=== PATIENT | female | born 2000 | race Caucasian/White ===

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

== ENCOUNTER → 2023-06-22 09:35 | Day surgery (SDC) | payer MEDICAID, SELFPAY ==
--- NOTE | 2023-06-22 09:28 | ANES.PREANE2 ---
Pre-Anesthetic Assessment Height/Weight: Height 1.5 m Operation Date: 06/28/23 07:00 Proposed Procedures p Section Repeat 52508,O34.219 33360,Z30.2(Not Applicable) - Ellis Mixon MD Familial anesthetic complications: Previous epidural did not work, had to be replaced, still didn't work. Had several attempts at placement When she then had to go to the epidural was pulled and spinal was attempted but it took over 30 attempts to get CSF (spinal worked ok) - patient has scoliosis She was told that they ended up using a [id number]-[id number] needle to obtain success on the epidural. Unclear was needle was used in spinal. Was Beta Jan taken within 24 hours: N/A Was Clonidine taken within 24 hours: N/A Social No alcohol and No tobacco Exam alert, oriented x 3, clear to auscultation bilaterally and regular rate & rhythm Airway Mallampati: Class II Dentition: chipped Pulmonary Asthma (rare inhaler use) Metabolic Morbid Obesity Anesthetic Plan ASA status: 2 Anesthesia: Regional (specify below) Risk of > 500 ml blood loss (7ml/kg in children): Yes, adequate IV access and fluids planned Medications/Allergies Home Medications Medication Instructions Recorded Confirmed Last Taken Type norgestimate 0.25 mg-ethinyl 1 tab PO DAILY #84 tabs 08/17/19 10/03/19 10/02/19 Rx estradiol 35 mcg tablet albuterol sulfate 90 mcg/actuation 1 inh inhalation QID PRN Shortness 10/03/19 10/03/19 Unknown History aerosol inhaler Of Breath cyclobenzaprine 10 mg tablet 10 mg PO TID PRN muscle spasm #20 10/03/19 Unknown Rx tabs hydrocodone 5 mg-acetaminophen 325 1 tab PO Q6H PRN pain #10 tabs 10/03/19 Unknown Rx mg tablet Allergies Allergy/AdvReac Type Severity Reaction Status Date / Time azithromycin Allergy Intermediate Difficulty Verified 08/17/19 15:29 [From Zithromax Z-Farooq] breathing, rapid pulse, rash cefdinir [From Omnicef] Allergy Unknown Verified 10/03/19 11:27 [facility] Anesthesia Medical History (Updated 10/11/19 @ 00:00 by WENDY Torres) Tinea versicolor Surgical History No pertinent past surgical history Family History Grandmother Heart disease Maternal grandmother Diabetes Maternal great grandmother Family/Other Heart disease Paternal great uncle Diabetes Maternal uncle Paternal great uncle Hypertension Maternal uncle Maternal aunt x2 Mother Heart disease Grandfather Heart disease Maternal grandfather Hypertension Maternal grandfather Denies family history of Colon cancer Ovarian cancer Hyperlipidemia Breast cancer Family history of thyroid problem Uterine cancer Stroke Social History Smoking and tobacco/nicotine status: never used tobacco/nicotine Alcohol intake: never Substance/Drug Use: never Data Anesthesia Cardiac Studies: No Data to Display
[2023-06-28] VITALS (17 sets, daily range): BP systolic 63–153; BP diastolic 34–99; PULSE 90–230; RESP 15; TEMP 36.6–36.9; O2SAT 96–100
--- NOTE | 2023-06-28 07:05 | P.ANESASSM_ITS ---
Pre-Anesthetic Assessment Height/Weight: Height 1.5 m Preop Diagnosis: repeat csection Operation Date: 06/28/23 07:00 Proposed Procedures p Section Repeat 33884,O34.219 35915,Z30.2(Not Applicable) - Ellis Mixon MD Was Beta Jan taken within 24 hours: N/A Was Clonidine taken within 24 hours: N/A Last Intake: 23:00 Social No tobacco Exam alert and oriented x 3 Airway Submandibular: within normal limits Cervical ROM: within normal limits Mallampati: Class II Dentition: full History/ROS No significant history except as noted Pulmonary None reported CV/HEM None reported None reported Hepatic None reported GI Gastroesophageal Reflux Disease Metabolic None reported Musc/skel Scoliosis Neuropsych None reported Anesthetic Plan ASA status: 2 Anesthesia: Regional (specify below) Other: SPINAL Risk of > 500 ml blood loss (7ml/kg in children): Yes, adequate IV access and fluids planned Medications/Allergies Home Medications Medication Instructions Recorded Confirmed Last Taken Type 1 tab PO DAILY 06/28/23 06/28/23 06/26/23 12:00 History [facility] Anesthesia Medical History (Updated 10/11/19 @ 00:00 by WENDY Torres) Tinea versicolor Surgical History No pertinent past surgical history Family History Grandmother Heart disease Maternal grandmother Diabetes Maternal great grandmother Family/Other Heart disease Paternal great uncle Diabetes Maternal uncle Paternal great uncle Hypertension Maternal uncle Maternal aunt x2 Mother Heart disease Grandfather Heart disease Maternal grandfather Hypertension Maternal grandfather Denies family history of Colon cancer Ovarian cancer Hyperlipidemia Breast cancer Family history of thyroid problem Uterine cancer Stroke Social History Smoking and tobacco/nicotine status: never used tobacco/nicotine Alcohol intake: never Substance/Drug Use: never Data Anesthesia Cardiac Studies: No Data to Display
== END ==
PROVIDERS: PCP Nurse Practitioner; Visit Provider Family Medicine
PROC: (CPT 59514; principal; 2023-06-28 07:00)
DX: Z53.9 Procedure and treatment not carried out, unspecified reason (principal)
CPT/HCPCS: 51702; 59409; 88302

== ENCOUNTER 2023-06-28 05:29 | Inpatient (IN) | payer MEDICAID, SELFPAY ==
[2023-06-28] VITALS (115 sets, daily range): BP systolic 106–141; BP diastolic 55–95; PULSE 33–153; RESP 16–17; TEMP 36.7–37.2; O2SAT 93–100; BMI 42.8
[2023-06-28 06:17] LABS: Basophils # 0.1 10^3/uL (0.0-0.1); Basophils % 0.8 %; Eosinophils # 0.1 10^3/uL (0.0-0.8); Eosinophils % 0.6 %; Hematocrit 32.6 % (36-47); Lymphocytes # 0.9 10^3/uL (0.8-4.8); Lymphocytes % 10.6 %; Mean Corpuscular Hemoglobin 24.3 pg (27-33); Mean Corpuscular Volume 78.4 fl (85-98); Mean Platelet Volume 10.8 fL (7.4-10.4); Neutrophils # 6.37 10^3/uL (1.8-7.7); Neutrophils % 73.6 %; Nucleated Red Blood Cells % 0 %; Platelet Count 377 10^3/cmm (157-399); Red Blood Count 4.16 10^6/uL (3.85-5.65); Red Cell Distribution Width 14.5 % (12.1-15.1); White Blood Count 8.66 10^3/uL (3.29-11.43)
[2023-06-28] MEDS: lactated ringers 1,000 ML 999 ML IV ×3 (06:17→10:18)
--- NOTE | 2023-06-28 06:32 | PM.OBGYHP ---
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 Patient denies any concerns today. Patient has had an unremarkable . labs were unremarkable. Patient is GBS positive. 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: Medical History (Updated 10/11/19 @ 00:00 by WENDY Torres) Tinea versicolor Surgical History No pertinent past surgical history Family History Grandmother Heart disease Maternal grandmother Diabetes Maternal great grandmother Family/Other Heart disease Paternal great uncle Diabetes Maternal uncle Paternal great uncle Hypertension Maternal uncle Maternal aunt x2 Mother Heart disease Grandfather Heart disease Maternal grandfather Hypertension Maternal grandfather Denies family history of Colon cancer Ovarian cancer Hyperlipidemia Breast cancer Family history of thyroid problem Uterine cancer Stroke Social History Smoking and tobacco/nicotine status: never used tobacco/nicotine Alcohol intake: never Substance/Drug Use: never History History History 2 Term 1 0 Miscarriages/Ectopic 0 Living Children 1 Vitals/I&O/Wt Last Vital Signs Pulse 106 H 06/28/23 06:23 BP 129/73 06/28/23 06:23 O2 Del Method Room Air 06/28/23 06:23 Weight last 48 hrs Weight 96.162 kg Physical Exam Const: COMMON NORMALS: no acute distress, healthy appearing and alert HENMT: COMMON NORMALS: normocephalic and moist oral mucous membranes Resp: COMMON NORMALS: normal respiratory effort and clear to auscultation bilaterally Cardio: COMMON NORMALS: no JVD, regular rate and regular rhythm GI: OTHER: Gravid uterus Back/Pelvis: COMMON NORMALS: no CVA tenderness Extremity: COMMON NORMALS: normal to inspection and no clubbing, cyanosis or edema Neuro: COMMON NORMALS: moves all extremities, no focal motor deficits and no sensory deficits noted Psych: COMMON NORMALS: mental status grossly normal, cooperative and normal affect Skin: COMMON NORMALS: no rashes or lesions noted Data 06/28/23 05:59 Results Labs OB ([facility]): Blood Type Pending 06/28/23 Antibody Screen Pending 06/28/23 Hct 32.6 % (36-47) L 06/28/23 Hgb 10.10 g/dL (11.27-16.99) L 06/28/23 Rho(D) Type Pending 06/28/23 Plt Count 377 10^3/cmm (157-399) 06/28/23 Attestations Medical Necessity Statement*: Patient presents and was admitted for repeat lower transverse and care. Anticipate 2 midnight stay Coding Level of Care Code Acute Code for Chg Fwd
[2023-06-28] MEDS: tranexamic acid 1,000 MG/100 ML PREMIX 600 MG IV (08:09)
--- NOTE | 2023-06-28 09:00 | P.OP_ITS ---
Operative Report Date of procedure: June 28, 2023 Pre-op diagnosis: Term intrauterine , desires permanent sterilization Post-op diagnosis: Same, viable male Procedure done: Repeat low-transverse with tubal ligation Specimens removed/disposition: Bilateral fallopian tubes Surgeon: Ellis Mixon MD Estimated blood loss (mL): 700 IV fluids: 1200 Urine output: 200 Complications: None Condition: stable Procedure: Patient was taken to the operating room where epidural anesthesia was found to be adequate. She was prepped and draped in the normal sterile fashion in a dorsal supine position with a leftward tilt. Skin incision was made with scalpel and carried out to the underlying layer of fascia which was incised in the midline. Fascial incision was then extended laterally with Cobb scissors bilaterally. The superior aspect of the fascial incision was grasped with Matias clamps elevated and dissected off the rectus muscles with Cobb's. The inferior aspect of the fascial incision was grasped with Samantha's and in likewise manner was elevated and dissected off with Cobb's. Peritoneum was then entered digitally and extended with good visualization of the bladder. Bladder blade was then inserted. Uterine incision was then created in a transverse fashion in the lower uterine segment with scalpel and extended digitally. Amniotic sac was a round with Allis clamp. Clear fluid noted. Infant's head was delivered atraumatically nose and mouth suctioned with bulb, cord clamped and cut and handed off to waiting nursing staff. The placenta was then expressed and uterus exteriorized from the abdomen. And cleared of all clots and debris. Uterine incision was then repaired in a running locked fashion with 0 Vicryl. A second suture of 2-0 Vicryl was then used to imbricate the incision. Left fallopian tube was grasped with an Allis clamp. The left fallopian tube was excised using a Voyant clamp. The right fallopian tube was then grasped and excised in a similar fashion. Uterus was then returned to the abdomen, gutters were cleared of all clots and debris and wound was evaluated. Small bowel bleeding was still noted so Aurea powder was placed. Peritoneum was then closed in a with simple sutures with 2-0 Vicryl. Fascia was then closed with 0 Vicryl in a running fashion. Subcutaneous tissue was closed with 2-0 Vicryl and skin was closed with 4-0 Monocryl on a Hermann needle. The incision was reinforced with Steri- Strips and pressure bandage was over the wound. Sponge, laps, and needle count was correct x2. 2 g Ancef was given prior to the procedure. Patient was taken recovery in stable condition.
[2023-06-28 09:41] LABS: Basophils # 0.1 10^3/uL (0.0-0.1); Basophils % 0.6 %; Eosinophils % 0.1 %; Hematocrit 26.4 % (36-47); Lymphocytes # 0.8 10^3/uL (0.8-4.8); Lymphocytes % 9.5 %; Mean Corpuscular HGB Conc 30.7 g/dL (30-55); Mean Corpuscular Hemoglobin 24.4 pg (27-33); Mean Corpuscular Volume 79.5 fl (85-98); Mean Platelet Volume 10.5 fL (7.4-10.4); Monocytes # 0.5 10^3/uL (0.2-0.9); Monocytes % 5.9 %; Neutrophils # 6.67 10^3/uL (1.8-7.7); Nucleated Red Blood Cells % 0 %; Platelet Count 335 10^3/cmm (157-399); Red Blood Count 3.32 10^6/uL (3.85-5.65); Red Cell Distribution Width 14.6 % (12.1-15.1); White Blood Count 8.24 10^3/uL (3.29-11.43)
[2023-06-28] MEDS: miSOPROStol 200 mcg Tablet 800 MCG PR (09:41)
[2023-06-28 14:42] LABS: Basophils # 0.1 10^3/uL (0.0-0.1); Basophils % 0.3 %; Hematocrit 24.9 % (36-47); Lymphocytes # 0.8 10^3/uL (0.8-4.8); Lymphocytes % 4.2 %; Mean Corpuscular HGB Conc 30.9 g/dL (30-55); Mean Corpuscular Hemoglobin 24.7 pg (27-33); Mean Corpuscular Volume 79.8 fl (85-98); Mean Platelet Volume 10.7 fL (7.4-10.4); Monocytes # 1.1 10^3/uL (0.2-0.9); Neutrophils # 15.96 10^3/uL (1.8-7.7); Neutrophils % 88.1 %; Nucleated Red Blood Cells % 0 %; Platelet Count 370 10^3/cmm (157-399); Red Blood Count 3.12 10^6/uL (3.85-5.65); Red Cell Distribution Width 14.6 % (12.1-15.1); White Blood Count 18.13 10^3/uL (3.29-11.43)
[2023-06-28] MEDS: ketorolac 30 mg/mL INJ IVP ×2 (14:42→20:53)
[2023-06-28] MEDS: docusate sodium 100 mg Capsule PO (17:55)
[2023-06-28] MEDS: ferrous sulfate EC 325 mg Tablet PO (17:55)
[2023-06-28] MEDS: simethicone 80 mg Chew PO (17:55)
[2023-06-28 21:08] LABS: Hematocrit 22.8 % (36-47); Mean Corpuscular HGB Conc 30.3 g/dL (30-55); Mean Corpuscular Hemoglobin 24.6 pg (27-33); Mean Corpuscular Volume 81.1 fl (85-98); Mean Platelet Volume 10.6 fL (7.4-10.4); Platelet Count 349 10^3/cmm (157-399); Red Blood Count 2.81 10^6/uL (3.85-5.65); Red Cell Distribution Width 14.6 % (12.1-15.1); White Blood Count 14.07 10^3/uL (3.29-11.43)
[2023-06-28] MEDS: HYDROcodone-acetaminophen 5-325 mg Tablet PO (23:46)
[2023-06-29] VITALS (12 sets, daily range): BP systolic 110–121; BP diastolic 55–70; PULSE 104–130; RESP 16–17; TEMP 36.8–37.6; O2SAT 96–99
[2023-06-29] MEDS: ketorolac 30 mg/mL INJ IVP ×2 (02:58→07:44)
[2023-06-29 06:20] LABS: Mean Corpuscular HGB Conc 30.9 g/dL (30-55); Mean Corpuscular Hemoglobin 24.9 pg (27-33); Mean Corpuscular Volume 80.5 fl (85-98); Mean Platelet Volume 10.7 fL (7.4-10.4); Platelet Count 355 10^3/cmm (157-399); Red Blood Count 2.41 10^6/uL (3.85-5.65); Red Cell Distribution Width 14.6 % (12.1-15.1); White Blood Count 11.98 10^3/uL (3.29-11.43)
[2023-06-29 06:28] LABS: Hematocrit 19.4 % (36-47)
--- NOTE | 2023-06-29 06:53 | P.PN_ITS ---
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 The patient had diaphoresis and increased tachycardia immediately after surgery. Those symptoms did improve. Initial hemoglobin was 8 immediately after surgery. This dropped to 7.7 4 hours later. 12 hours it was 6.9 and approximately 24 hours it was 6. Patient is a symptomatic. Patient is able to stand without dizziness. Lochia has been appropriate. Patient has been having some abdominal tenderness but this seems to be appropriate with fundal height. Nursing has expressed some increase in abdominal distention. Patient has had good urine output. Patient has urinated after catheter removal. Labor: Monitor Mode: External Contraction Pattern: Irregular Post /CS: Patient comments OB post-: pain well controlled and incisional pain baby status: doing well [place] feeding status: e xclusively bottle feeding Vitals/I&O/Wt Last Vital Signs Temp 98.1 F 06/28/23 22:17 Pulse 119 H 06/29/23 05:56 Resp 17 06/28/23 22:17 BP 119/58 06/29/23 05:55 Pulse Ox 99 06/29/23 05:56 O2 Del Method Room Air 06/28/23 22:17 06/28/23 06/28/23 06/29/23 14:59 22:59 06:59 Intake Total 1032.4 / 1032.4 1000 / 2032.4 Output Total 800 / 800 850 / 1650 Balance 1032.4 / 1032.4 200 / 1232.4 -850 / 382.4 Weight last 48 hrs Weight 96.162 kg Physical Exam 2 Const: COMMON NORMALS: no acute distress, healthy appearing and alert HENMT: COMMON NORMALS: normocephalic and moist oral mucous membranes HEAD & SCALP: normocephalic Neck/C-Spine: COMMON NORMALS: no JVD Resp: COMMON NORMALS: normal respiratory effort and clear to auscultation bilaterally AUSCULTATION: clear to auscultation bilaterally Cardio: COMMON NORMALS: no JVD, regular rate and regular rhythm RATE: r egular rate RHYTHM: regular rhythm GI: COMMON NORMALS: Normal to inspection, nondistended, normoactive bowel sounds present and Soft to palpation PALPATION: Yes Soft to palpation O THER: Tender over uterus. : COMMON NORMALS: Yes no CVA tenderness BLADDER/KIDNEY EXAM: Yes no CVA tenderness Back/Pelvis: COMMON NORMALS: no CVA tenderness Extremity: COMMON NORMALS: normal to inspection and no clubbing, cyanosis or edema Neuro: COMMON NORMALS: moves all extremities, no focal motor deficits and no sensory deficits noted SENSORIUM/ORIENTATION: Yes alert Psych: COMMON NORMALS: mental status grossly normal, cooperative and normal affect Skin: COMMON NORMALS: no rashes or lesions noted GENERAL SKIN EXAM: no rashes or lesions noted Urinary Catheter Management: Joya Latex: Cath Placed During This Visit: yes, but has since been removed by the nurse Reason for Continuing Indwelling Catheter: Decision to DC Catheter Urinary Catheter Date of Insertion: 06/28/23 Urinary Catheter Time of Insertion: 07:15 Date Urinary Catheter Removed: 06/29/23 Time Urinary Catheter Discontinued: 02:59 Data 06/29/23 06:15 A&P Assessment and plan (1) delivery, delivered, current hospitalization: Continue with routine care. (2) Acute blood loss anemia: Continue to trend hemoglobin. Patient is currently asymptomatic so we will avoid blood transfusion at this time, however if this changes then we will proceed. Patient has 2 units typed and crossed. Attestations 2 Medical Necessity Statement*: Patient admitted for repeat lower transverse . Anticipate at least 2 midnight stay Coding Level of Care Code Acute Code for Chg Fwd Diagnoses delivery, delivered, current hospitalization O82 Acute blood loss anemia D62
[2023-06-29] MEDS: prenatal vitamin Capsule 1 CAP PO (07:45)
[2023-06-29] MEDS: ferrous sulfate EC 325 mg Tablet PO ×2 (07:45→20:06)
[2023-06-29] MEDS: simethicone 80 mg Chew PO ×2 (07:45→14:47)
--- NOTE | 2023-06-29 07:52 | PC.NURSE ---
This nurse called Dr. Mixon at approximately 2100 on 06/28/2023 to report the results of the 12 hour hemagram, patient's pain level and the assessment of the rigidity of the patient's abdomen. Dr. Mixon verbalize understanding and stated that he would like a repeat hemagram in the AM and frequent vital signs.
[2023-06-29 11:47] LABS: Hematocrit 19.3 % (36-47)
--- NOTE | 2023-06-29 11:53 | PC.NURSE ---
Physician notified at this time of critical hgb result of 5.9, pt asymptomatic, VS within normal range with exception of heart rate, has ranged from 104-130. Orders received to recheck hgb in 6 hr at 1700.
[2023-06-29 18:07] LABS: Hematocrit 18.7 % (36-47)
--- NOTE | 2023-06-29 18:21 | PC.NURSE ---
Physician notified of critical lab result of hgb of 5.6, pt experiencing chills, increase in temp to 99.6, face warm to touch, abdomen appears slightly distended upon assessment at this time. Orders received for IV gentamycin and ampicillin, redraw hgb in another 6 hours at 2300.
[2023-06-29] MEDS: ampicillin 1,000 MG in sodium chloride 0.9% (plus) 50 ML 100 MG IV (20:01)
[2023-06-29] MEDS: docusate sodium 100 mg Capsule PO (20:06)
[2023-06-29] MEDS: ibuprofen 800 mg tablet PO (21:13)
[2023-06-29] MEDS: gentamicin inj 480 MG in sodium chloride 0.9% (100 ml) 100 ML 112 MG IV (21:18)
[2023-06-29 23:13] LABS: Mean Corpuscular HGB Conc 30.9 g/dL (30-55); Mean Corpuscular Hemoglobin 24.3 pg (27-33); Mean Corpuscular Volume 78.8 fl (85-98); Mean Platelet Volume 10.7 fL (7.4-10.4); Platelet Count 361 10^3/cmm (157-399); Red Blood Count 2.26 10^6/uL (3.85-5.65); Red Cell Distribution Width 14.7 % (12.1-15.1); White Blood Count 10.13 10^3/uL (3.29-11.43)
[2023-06-29 23:23] LABS: Hematocrit 17.8 % (36-47)
[2023-06-30 04:31] VITALS: BP 99/54; PULSE 99; O2SAT 99
[2023-06-30 04:34] VITALS: TEMP 36.4
[2023-06-30] MEDS: HYDROcodone-acetaminophen 5-325 mg Tablet PO (04:36)
[2023-06-30 04:41] LABS: Mean Corpuscular HGB Conc 30.4 g/dL (30-55); Mean Corpuscular Hemoglobin 24.3 pg (27-33); Mean Corpuscular Volume 79.9 fl (85-98); Mean Platelet Volume 9.7 fL (7.4-10.4); Platelet Count 379 10^3/cmm (157-399); Red Blood Count 2.59 10^6/uL (3.85-5.65); Red Cell Distribution Width 14.7 % (12.1-15.1); White Blood Count 10.98 10^3/uL (3.29-11.43)
[2023-06-30 04:46] LABS: Hematocrit 20.7 % (36-47)
--- NOTE | 2023-06-30 07:31 | P.DS_ITS ---
Discharge Providers ASSESSMENT TECHNICIAN Date of Admission: 06/28/23 05:29 Date of Discharge: 06/30/23 Attending Provider at Admission: Ellis Mixon MD Attending Provider at Discharge: Ellis Mixon MD Primary Care Provider: Hipolito Sandoval Diagnoses at Discharge Discharge Diagnosis (1) delivery, delivered, current hospitalization: Status: Acute (2) Acute blood loss anemia: Status: Acute (3) Endometritis: Status: Acute Reason for Visit Reason for Visit: c section Brief History: Repeat low-transverse with tubal ligation Hospital Course Hospital Course This is a 23-year-old that presented at 39 weeks for a repeat low- transverse with tubal ligation. The patient underwent procedure without significant complication. The patient did have diaphoresis, tachycardia, and hypotension following the procedure. Patient received fluids and her symptoms did improve. Patient's uterus was boggy as well and the patient received multiple doses of medications including Methergine and Cytotec. Once patient was stable she was moved into a room and did not have any further significant issues. There was blood loss during the procedure and concerns for potential continued bleeding so hemoglobin was trended throughout her stay. The patient did have a downward trending hemoglobin for the first 2 days. On day 2 the patient did have increasing abdominal tenderness and elevated temperature. The patient was diagnosed with endometritis and started on gentamicin and ampicillin. This was likely from GBS since she was GBS positive. The patient did have significant improvement after the administration of antibiotics and her hemoglobin started trending upwards. The patient did not have any significant signs or symptoms of anemia. The patient was able to ambulate and do routine activity without shortness of breath or dizziness. Patient was not administered blood because of this. On the day of discharge patient was stable vital signs were normal. Information Peripartum Data: Infant Delivery Method: Physical Exam Const: COMMON NORMALS: no acute distress, healthy appearing and alert HENMT: COMMON NORMALS: normocephalic and moist oral mucous membranes HEAD & SCALP: normocephalic Neck/C-Spine: COMMON NORMALS: no JVD Resp: COMMON NORMALS: normal respiratory effort and clear to auscultation bilaterally AUSCULTATION: clear to auscultation bilaterally Cardio: COMMON NORMALS: no JVD, regular rate and regular rhythm RATE: regular rate RHYTHM: regular rhythm GI: COMMON NORMALS: Normal to inspection, nondistended, normoactive bowel sounds present and Soft to palpation PALPATION: Yes Soft to palpation OTHER: Interval improvement in tenderness. Incision is clean dry and intact. : COMMON NORMALS: Yes no CVA tenderness BLADDER/KIDNEY EXAM: Yes no CVA tenderness Back/Pelvis: COMMON NORMALS: no CVA tenderness Extremity: COMMON NORMALS: normal to inspection and no clubbing, cyanosis or edema Neuro: COMMON NORMALS: moves all extremities, no focal motor deficits and no sensory deficits noted SENSORIUM/ORIENTATION: Yes alert Psych: COMMON NORMALS: mental status grossly normal, cooperative and normal affect Skin: COMMON NORMALS: no rashes or lesions noted GENERAL SKIN EXAM: no rashes or lesions noted Urinary Catheter Management: Joya Latex: Cath Placed During This Visit: yes, but has since been removed by the nurse Reason for Continuing Indwelling Catheter: Decision to DC Catheter Urinary Catheter Date of Insertion: 06/28/23 Urinary Catheter Time of Insertion: 07:15 Date Urinary Catheter Removed: 06/29/23 Time Urinary Catheter Discontinued: 02:59 History History History 2 Term 2 0 Miscarriages/Ectopic 0 Living Children 2 Discharge Data Studies Completed and Pending Pending at discharge Category Date Time Status Leukocyte Reduced RBC Routine Lab 06/28/23 05:59 Results Type and Screen Routine Lab 06/28/23 05:59 Results Laboratory Results WBC 10.98 10^3/uL (3.29-11.43) 06/30/23 04:32 RBC 2.59 10^6/uL (3.85-5.65) L 06/30/23 04:32 Hgb 6.30 g/dL (11.27-16.99) L* 06/30/23 04:32 Hct 20.7 % (36-47) L* 06/30/23 04:32 MCV 79.9 fl (85-98) L 06/30/23 04:32 MCH 24.3 pg (27-33) L 06/30/23 04:32 MCHC 30.4 g/dL (30-55) 06/30/23 04:32 RDW 14.7 % (12.1-15.1) 06/30/23 04:32 Plt Count 379 10^3/cmm (157-399) 06/30/23 04:32 MPV 9.7 fL (7.4-10.4) 06/30/23 04:32 Neut % (Auto) 88.1 % 06/28/23 14:33 Lymph % (Auto) 4.2 % 06/28/23 14:33 Leslie % (Auto) 6.0 % 06/28/23 14:33 Eos % (Auto) 0.0 % 06/28/23 14:33 Baso % (Auto) 0.3 % 06/28/23 14:33 Neut # (Auto) 15.96 10^3/uL (1.8-7.7) H 06/28/23 14:33 Lymph # (Auto) 0.8 10^3/uL (0.8-4.8) 06/28/23 14:33 Leslie # (Auto) 1.1 10^3/uL (0.2-0.9) H 06/28/23 14:33 Eos # (Auto) 0.0 10^3/uL (0.0-0.8) 06/28/23 14:33 Baso # (Auto) 0.1 10^3/uL (0.0-0.1) 06/28/23 14:33 Nucleated RBC % (auto) 0 % 06/28/23 14:33 Nucleated RBCs # 0.0 /100WBC 06/28/23 14:33 Blood Type O Positive 06/28/23 05:59 Rho(D) Type Rh positive 06/28/23 05:59 Antibody Screen Negative 06/28/23 05:59 Crossmatch See Detail 06/28/23 05:59 Vitals Last Vital Signs Temp 97.6 F 06/30/23 04:34 Pulse 99 06/30/23 04:31 Resp 16 06/29/23 20:00 BP 99/54 06/30/23 04:31 Pulse Ox 99 06/30/23 04:31 O2 Del Method Room Air 06/29/23 20:00 Results Labs OB ([facility]): Blood Type O Positive 06/28/23 Antibody Screen Negative 06/28/23 Hct 20.7 % (36-47) L* 06/30/23 Hgb 6.30 g/dL (11.27-16.99) L* 06/30/23 Rho(D) Type Rh positive 06/28/23 Plt Count 379 10^3/cmm (157-399) 06/30/23 Discharge Plan Discharge Patient Disposition: Home Condition: Stable Prescriptions: New hydrocodone-acetaminophen 5-325 mg Tablet 1 - 2 tab PO Q4H PRN (Reason: Moderate To Severe Pain) Qty: 20 0RF ferrous sulfate 325 mg (65 mg iron) Tablet,Delayed Release (Dr/Ec) 325 mg PO BIDWM Qty: 180 0RF Continued 1 tab PO DAILY Discharge Orders: Discharge Order (Routine); Ordered 06/30/23 Ordered By: Ellis Mixon Referrals: Ellis Mixon MD [Physician] - 1 week Discharge Diet: Usual diet Discharge Activity: Limit activity as instructed Patient Instructions: Opioid Safety Discharge Attestations ASSESSMENT TECHNICIAN Time Spent in Discharge Care*: less than 30 min Coding Level of Care Code Acute Code for Chg Fwd Diagnoses delivery, delivered, current hospitalization O82 Acute blood loss anemia D62 Endometritis N71.9
[2023-06-30] MEDS: ampicillin 1,000 MG in sodium chloride 0.9% (plus) 50 ML 100 MG IV (08:13)
[2023-06-30] MEDS: prenatal vitamin Capsule 1 CAP PO (08:14)
[2023-06-30] MEDS: docusate sodium 100 mg Capsule PO (08:14)
[2023-06-30] MEDS: ferrous sulfate EC 325 mg Tablet PO (08:14)
[2023-06-30] MEDS: ibuprofen 800 mg tablet PO (08:15)
[2023-06-30 10:39] VITALS: BP 112/58; PULSE 92
[2023-06-30 10:40] VITALS: TEMP 36.4
[2023-06-30 11:15] VITALS: BP 112/58; PULSE 92; RESP 17; TEMP 36.4; O2SAT 99
== END 2023-06-30 11:15 | disposition home or self-care (01) | DRG 784 ==
LOC: OBGYN 05:30
PROVIDERS: Admitting Provider Family Medicine; PCP Nurse Practitioner; Visit Provider Family Medicine
DX: O34.211 Maternal care for low transverse scar from previous cesarean delivery (principal); D62 Acute posthemorrhagic anemia; O86.12 Endometritis following delivery; N85.8 Other specified noninflammatory disorders of uterus; Z3A.39 39 weeks gestation of pregnancy; Z37.0 Single live birth; Z30.2 Encounter for sterilization; O99.824 Streptococcus B carrier state complicating childbirth; O90.81 Anemia of the puerperium
CPT/HCPCS: 36415; 51702; 59025; 59409; 85014; 85018; 85025; 85027; 86850; 86900; 86920; 88302; 96374; 96376; J0290; J1580; J1885; J2274; J2371; J2405; J7120

== ENCOUNTER 2025-03-21 12:46 | Emergency (ER) | payer SELFPAY ==
[2025-03-21 12:54] VITALS: BP 111/88; PULSE 98; RESP 18; TEMP 36.6; O2SAT 96; BMI 35.3
--- NOTE | 2025-03-21 13:30 | ED_ITS ---
HPI - Wound/Laceration General: Chief Complaint: Wound/Laceration Stated Complaint: dime sized wound rt abd low Time Seen by Provider: 03/21/25 13:10 Source: patient Mode of arrival: ambulatory Limitations: no limitations History of Present Illness: Patient is a 25 old female presents the emergency department complaining of wound dehiscence that she has noticed the past few days. The wound is a cesa rean section scar, however this is 2 years old states that she has had issues with the left side of the wound dehiscing in the past, but now it is the right side. States that she is not having much pain, there is no significant redness but she did note some green drainage that has turned into bloody drainage and a small hole that she noticed today. Vital stable, no fevers, nausea/vomiting, or any other symptoms or signs of systemic illness. She would like the wound cultured. Onset (ago): day(s) Location: abdomen Associated symptoms: Denies chills, fever(s), nausea or vomiting Related Data Home Medications ?Medication ?Instructions ?Recorded ?Confirmed 1 tab PO DAILY 06/28/2306/04 Previous Rx's ?Medication ?Instructions ?Recorded ferrous sulfate 325 mg (65 mg 325 mg PO BIDWM #180 tab s 06/30/23 iron) tablet,delayed release hydrocodone 5 mg-acetaminophen 325 1 - 2 tab PO Q4H MI N Moderate To 06/30/23 mg tablet Severe Pain #20 tabs clindamycin HCl 300 mg capsule 300 mg PO BID 5 days #1 0 caps 03/21/25 Allergies Allergy/AdvReac Type Severity Reaction Status Date / Time No Known Allergies Allergy Verified 06/28/23 22:42 Review of Systems General: Reports: 10 or more systems reviewed and unremarkable except in HPI and below Const: Denies: fever(s) or chills Card: Denies: chest pain Resp: Denies: dyspnea GI: Denies: abdominal pain, nausea, vomiting or diarrhea Musc: Denies: extremity pain or joint pain Skin/Breast: Reports: lesions and surgical incision (Drainage); Denies: rash, skin pain, skin tenderness or new lesions Neuro: Denies: headache(s) PFS ED PFSH: Medical History Tinea versicolor Surgical History No pertinent past surgical history Family History Grandmother Heart disease Maternal grandmother Diabetes Maternal great grandmother Family/Other Heart disease Paternal great uncle Diabetes Maternal uncle Paternal great uncle Hypertension Maternal uncle Maternal aunt x2 Mother Heart disease Grandfather Heart disease Maternal grandfather Hypertension Maternal grandfather Denies family history of Colon cancer Ovarian cancer Hyperlipidemia Breast cancer Family history of thyroid problem Uterine cancer Stroke Social History Smoking and tobacco/nicotine status: never used tobacco/nicotine Alcohol intake: never Substance/Drug Use: never Physical Exam Const: COMMON NORMALS: no acute distress, average body habitus, patient oriented x3, no limitations, healthy appearing, alert and well nourished HENMT: COMMON NORMALS: normocephalic and atraumatic HEAD & SCALP: normocephalic and atraumatic Neck/C-Spine: COMMON NORMALS: full ROM, no lymphadenopathy, supple and no meningeal signs Extremity: COMMON NORMALS: full ROM and capillary refill normal Neuro: COMMON NORMALS: patient oriented x3 SENSORIUM/ORIENTATION: Yes alert MENINGEAL SIGNS: Yes no meningeal signs Skin: COMMON NORMALS: turgor normal NARRATIVE SKIN EXAM: section scar, to the right there is a very tiny area of dehiscence with no active drainage. There is no surrounding fluctuance or induration to the scar. GENERAL SKIN EXAM: turgor normal Course Vital Signs: Vital signs: Vital Signs Temperature 97.9 F 03/21/25 12:54 Pulse Rate 98 03/21/25 12:54 Respiratory Rate 18 03/21/25 12:54 Blood Pressure 111/88 03/21/25 12:54 Pulse Oximetry 96 03/21/25 12:54 Oxygen Delivery Me thod Room Air 03/21/25 12:54 MDM - Wound/Laceration Medical Decision Making Patient presented with concerns of dehiscence of her section wound. This is 3 years old, has dealt with issues from the left side of the wound but now has had issues with the right, and reports some green drainage over the past day that has turned into bloody drainage. On exam there is no significant signs of infection, no concerning signs of an abscess and she is not systemically ill or toxic appearing. I think that due to the patient's body habitus, and overlying pannus, that the area/environment has not been dry enough to allow for this acute on chronic wound dehiscence, however there is no indication that this wound needs to be packed or that further labs or imaging needs to be performed. I feel that with a proper dry environment that this will heal well on its own, she did request a culture be obtained though wound not actively draining. Because of her concerns of mild amount of redness, prophylactic antibiotics for a few days will be enacted and she is informed on signs to watch for that would warrant return to the ED or presentation to primary care. She agrees to this discharge plan at this time. No radiology studies performed this visit Discharge Plan Discharge Patient Disposition: Home Clinical Impression: Wound dehiscence, surgical Condition: Stable Prescriptions: New clindamycin HCl 300 mg capsule 300 mg PO BID 5 Days Qty: 10 0RF No Action 1 tab PO DAILY hydrocodone-acetaminophen 5-325 mg Tablet 1 - 2 tab PO Q4H PRN (Reason: Moderate To Severe Pain) Qty: 20 0RF ferrous sulfate 325 mg (65 mg iron) Tablet,Delayed Release (Dr/Ec) 325 mg PO BIDWM Qty: 180 0RF Discharge Orders: Discharge ED (Routine); Ordered 03/21/25 Ordered By: Lg Hubbard Patient Instructions: Patient Portal & Sandeep Instructions Activity Restrictions/Additional Instructions: Scar Wound Care Wound Care Instructions: - Keep the wound area clean and dry. Gently pat the area dry after showering; avoid soaking the wound or applying creams, ointments, or powders unless specifically instructed. A dry environment can help promote healing, especially in areas where moisture may delay closure. - Monitor for signs of infection. Watch for increased redness, swelling, warmth, pain, pus, or foul odor from the wound. Also, monitor for fever or feeling unwell. If any of these occur, contact your healthcare provider promptly. - Antibiotic instructions: Take clindamycin as prescribed (twice daily for five days). Complete the full course even if the wound appears improved. This is a precautionary measure; routine use of antibiotics after wound dehiscence is not generally recommended unless there are signs of infection, but it is being provided at your request. - Wound culture: Your wound has been cultured. You will be contacted if any changes to your treatment are needed based on the results. - Dressings: If a dressing is used, change it as directed, keeping the area dry and clean. Avoid tight clothing or anything that may rub against the wound. - Activity: Avoid strenuous activity or heavy lifting that could strain the wound area until cleared by your provider. - Follow-up: Attend all scheduled follow-up appointments to monitor healing and review culture results. When to seek immediate care: - Fever over 100.4?F (38?C) - Spreading redness or rapidly increasing pain - Pus or foul-smelling drainage - Feeling generally unwell These instructions are based on current best practices for minor surgical wound care and infection prevention after delivery. Print Language: Ivorian Coding Level of Care Code ED Supervisor [employer] for Darya Yanez
--- NOTE | 2025-03-21 13:56 | PC.NURSE ---
PT WOUND CLEANSED WITH NS. 2X2 AND TEGADERM APPLIED
[2025-03-21 13:57] VITALS: BP 108/64; PULSE 73; RESP 16; O2SAT 98
--- OUTSIDE RECORDS SUMMARY | 2025-03-21 15:24 | XMS_ITS | Data Portability ---
Author Organization [facility] CenterJimmy [facility] Address [address] [facility] [address] [place] [address] Care Team Providers Care Rn Assessment Name Role Phone MOHAMUD MIXON Primary Care Provider [phone] Assessment No assessment recorded. Plan of Treatment Reminders Order Date Submit Date Provider Last Modified By Organization Details Last Modified Time Details Appointments None recorded. Lab urinalysis, dipstick 2023 024 [facility] ([facility]), [address] [place], [address], 4 14:54:52 streptococc us group B, culture, vaginal or rectal 2023 024 tgreg [facility], [address] [place] [address] , [address], [address], 4 08:19:25 urinalysis, dipstick 2023 024 [facility] ([facility]), [address] [place], [address], 4 13:46:28 Referral None recorded. Procedures None recorded. Surgeries None recorded. Imaging None recorded. Medication Orders cephalexin 500 mg capsule 2023 024 [facility], [place], [address], 4 10:50:06 Patient TargetsNo targets recorded. Patient InstructionsNo instructions recorded. Reason for Referral None Reported. Results Created Date Observation Date Name Description Value Unit Range Abnormal Flag Note LastModifiedBy Organization Detail LastModifiedTime 05/10/19 24 05/10/2023 urina lysis , dipst ick Leukocytes Trace Not Available [facility] ([facility]) [address] [place], [address], 05/10/2023 08:31:47 05/10/19 24 05/10/2023 urina lysis , dipst ick Protein Trace Not Available [facility] ([facility]) [address] [place], [address], 05/10/2023 08:31:47 05/10/19 24 05/10/2023 urina lysis , dipst ick Nitrite negati ve Not Available [facility] ([facility]) [address] [place], [address], 05/10/2023 08:31:47 05/10/19 24 05/10/2023 urina lysis , dipst ick Glucose Negati ve Not Available [facility] ([facility]) [address] [place], [address], 05/10/2023 08:31:47 06/22/19 24 06/25/2023 STREP TOCOC CUS, GROUP B CULTU RE streptococcu s, group B culture SEE NOTE abnormal STREP TOCOC CUS, GROUP B CULTU RE Micro Numbe r: [id number] Test Statu s: Final Speci men Sourc e: Vagin al/an orect al Speci men Quali ty: Adequ ate Resul t: Group B Strep tococ cus isola meghann Beta- hemol ytic strep tococ ci are predi ctabl y susce ptibl e to Penic illin and other beta- lacta ms. Susce ptibi lity testi ng not routi rod perfo rmed. Pleas e conta ct the labor atory withi n 3 days if susce ptibi lity testi ng is carloz ed. Note per CDC guide lines optim al recov faiza is achie eliseo by swabb ing both the lower vagin a and rectu m (thro ugh the anal sphin cter) . Not Available [facility] [address] [place], [address], 06/25/2023 11:21:40 06/22/19 24 06/22/2023 urina lysis , dipst ick Protein Trace Not Available [facility] ([facility]) [address] [place], [address], 06/09/2023 12:05:40 06/22/19 24 06/22/2023 urina lysis , dipst ick Leukocytes Negati ve Not Available [facility] ([facility]) [address] [place] [address], [address], 06/09/2023 12:05:40 06/22/19 24 06/22/2023 urina lysis , dipst ick Nitrite negati ve Not Available [facility] ([facility]) [address] [place], [address], 06/09/2023 12:05:40 06/22/19 24 06/22/2023 urina lysis , dipst ick Glucose Negati ve Not Available [facility] ([facility]) [address] [place], [address], 06/09/2023 12:05:40 Result Notes None recorded. Problems Name Problem SNOMED Code Status Onset Date Resolution Date Notes Provider Name and Address Organization Details Recorded Time 80430377 Active 2022 JESSICA mandel, [facility]CEamon 3 12:10:34 Gestation period, 27 weeks 84090269 Active 2022 Mohamud Mixon MD [address] [place] [address], [address], [facility], L.L[facility]CEamon 3 12:22:05 Gestation period, 32 weeks 5736526 Active 2023 Mohamud Mixon MD [address] [place] [address], [address], [facility] 4 13:46:35 Gestation period, 36 weeks 65952591 Active 2023 Mohamud Mixon MD [address] [place] [address] 5, [facility] 4 14:40:26 Gestation period, 38 weeks 25329730 Active 2023 Mohamud Mixon MD [address] [place] [address] 5, [facility] 4 16:54:21 Postoperative wound infection 70825171 Active 2023 Mohamud Mixon MD [address] [place] [address] 5, [facility] 4 10:39:21 Anemia due to blood loss 756859930 Active 2023 Mohamud Mixon MD [address] [place] [address] 5, [facility] 4 10:12:55 Problem Notes None recorded. Procedures Surgical History Date Name Laterality Status Provider Name and Address Organization Details Recorded Time 1 section completed [facility] 04/05/2023 12:07:28 Imaging Results None recorded. Procedure Notes None recorded. Medical Equipment None Reported. Allergies No known drug allergies Medications Name Sig Start Date Stop Date Status Note LastModified by Organization Details LastModified Time cephalexin 500 mg capsule Take 1 capsule every 6 hours by oral route. 2023 active Not Available Not Available Not Avai lable oseltamivir 75 mg capsule TAKE ONE CAPSULE BY MOUTH TWICE DAILY 04/05 completed Not Available Not Available Not Available amoxicillin 500 mg-potassium clavulanate 125 mg tablet TAKE ONE TABLET BY MOUTH EVERY TWELVE HOURS 04/05 completed Not Available Not Available Not Available iron active Not Available Not Availa ble Not Available active Not Available Not Avai lable Not Available Vitals Date Recorded Body height Body mass index (BMI) Body weight Body temperature Heart rate Oxygen saturation Oxygen saturation in Arterial blood by Pulse oximetry Systolic And Diastolic Provider Name and Address Organization Details Last Updated DateTime 4 149.86 cm 40.6 kg/m2 79934.4 01180 g 97.5 [degF] 77 /min 98 % 98 % 138/88 mm[Hg] [facility] 4 11:23:19 Date Recorded Body height Respiratory rate Body mass index (BMI) Body weight Body temperature Heart rate Oxygen saturation Oxygen saturation in Arterial blood by Pulse oximetry Systolic And Diastolic Provider Name and Address Organization Details Last Updated DateTime 4 149.86 cm 20 /min 41.5 kg/m2 64519.8 74835 g 97.8 [degF] 86 /min 98 % 98 % 120/72 mm[Hg] [facility] 4 11:20:52 Date Recorded Body height Body mass index (BMI) Body weight Body temperature Oxygen saturation Oxygen saturation in Arterial blood by Pulse oximetry Heart rate Systolic And Diastolic Provider Name and Address Organization Details Last Updated DateTime 4 149.86 cm 42.4 kg/m2 81848.3 977 g 97.4 [degF] 99 % 99 % 88 /min 122/80 mm[Hg] [facility] 4 11:42:14 Date Recorded Body height Body mass index (BMI) Body weight Body temperature Oxygen saturation Oxygen saturation in Arterial blood by Pulse oximetry Heart rate Systolic And Diastolic Provider Name and Address Organization Details Last Updated DateTime 4 149.86 cm 38.2 kg/m2 80645.9 91208 g 97.7 [degF] 99 % 99 % 102 /min 130/86 mm[Hg] [facility] 4 10:23:55 Date Recorded Body height Respiratory rate Body mass index (BMI) Body weight Body temperature Heart rate Oxygen saturation Oxygen saturation in Arterial blood by Pulse oximetry Systolic And Diastolic Provider Name and Address Organization Details Last Updated DateTime 4 149.86 cm 20 /min 38.7 kg/m2 35598.9 4 g 97.3 [degF] 99 /min 98 % 98 % 110/74 mm[Hg] DARYA NEVAREZ [facility] 4 11:03:37 Social History Question Answer Notes LastModified by getupp Details LastModified Time Tobacco Smoking Status Former Smoker [facility]IL[facility]WE[facility] BARON tequila [facility] 04/05/2023 12:07:06 What Is Your Level Of Caffeine Consumption? Moderate Information not available 04/05/2023 Sex: Unknown Functional Status Question Answer Note LastModified by [employer] ([employer]roprietary) ion Details LastModified Time Do you use any illicit or recreational drugs? No Information not available 04/05/2023 What is your level of alcohol consumption? None Information not available 04/05/2023 Are you currently employed? No Information not available 04/05/2023 Are you able to walk independently without assistance or assistive devices? YESWOREST Information not available 04/05/2023 Are you able to care for yourself independently? Yes Information not available 04/05/2023 Mental Status None recorded. Family History Nothing Reported. Medical History No medical history recorded. Gynecological HistoryNo gynecological history recorded. Obstetrics History GPAL:G 2 P 1 0 0 1 Type Value Multiple Births 0 Full Term 1 Induced 0 Spontaneous 0 Premature 0 Living 1 Ectopics 0 Total 2 Immunizations Vaccine Type Date Status Note Provider Nam e and Address Organization Details Recorded Time Tdap 04/05/2023 completed Mohamud Mixon MD [address] [place] [address], [address], [facility] 04/05/2023 14:44:43 Past Encounters Encounter ID Performer Location Encounter Start Date Encounter Closed Date Diagnosis/Indication Diagnosis SNOMED-CT Code Diagnosis ICD10 Code Diagnosis IMO Codes Diagnosis Note [id number] Mohamud Mixon MD [facility] ([facility]) [address] [place] [phone] 04/05/2023 11:51:16 04/05/2023 15:20:33 Normal in multigravida 8013108819 90292 Z34.82 No concerns on today's visit. Anticipato ry guidance provided and all questions answered. We will proceed with glucose tolerance test today as well as Tdap. Gestation period, 27 weeks 51102753 Z3A.27 [id number] Mohamud Mixon MD [facility] ([facility]) [address] [place] [phone] 05/10/2023 11:14:43 05/10/2023 12:14:45 Normal in multigravida 4104434071 46076 Z34.82 No concerns on today's visit. Anticipato ry guidance provided and all questions answered. Gestation period, 32 weeks 4864890 Z3A.32 Counseling for elective sterilization done 5493632416 31357 Z30.2 Discussed permanent sterilizat ion with the patient. Patient would like to do this if possible. Encouraged the patient to discuss with gela cash further and to ensure that she is 100% positive that she desires no more children. Will have her sign consent at next visit if she wishes to pursue this. [id number] Mohamud Mixon MD [facility] ([facility]) [address] [place] [phone] 06/07/2023 11:02:00 06/09/2023 15:15:36 Normal in multigravida 1144925768 14555 Z34.82 No concerns on today's visit. Anticipato ry guidance provided and all questions answered. Sterilizat ion requested 786245313 Z30.2 plan to be proceed with tubal with as discussed during last visit. Gestation period, 36 weeks 53528124 Z3A.36 [id number] Mohamud Mixon MD [facility] ([facility]) [address] [place] [id number] 06/22/2023 11:27:38 06/22/2023 14:19:31 Normal in multigravida 7279047665 35986 Z34.82 No concerns on today's visit. Anticipato ry guidance provided and all questions answered. Gestation period, 38 weeks 41463153 Z3A.38 Plan to proceed with repeat low-transv erse with tubal ligation on June 28. [id number] Mohamud Mixon MD [facility] ([facility]) [address] [place] [phone] 07/07/2023 10:15:48 07/07/2023 11:52:47 Postoperative wound infection 98041414 T81.40XA Wound is showing significan t signs of infection. Will start Keflex. Wound was cleansed and new Steri-Stri ps were applied. Discussed wound care with the patient. Follow-up next week for reevaluati on Anemia due to blood loss 835646938 D50.0 Patient's hemoglobin was up to 9.2 after transfusio n. No current symptoms today. care 17498399 8 Z39.0 [id number] Mohamud Mixon MD [facility] ([facility]) [address] [place] [id number] 07/19/2023 10:57:39 07/19/2023 11:49:11 Postoperative wound infection 27293638 T81.40XA 1 infection appears to have improved. The patient does have a opening within the left side of the incision that required some packing. The wound was packed with iodoform and will have the patient change the packing every 2 days until wound is healed. Follow-up if symptoms do not improve or worsen. Otherwise we will see her back at her 6-week visit Health Concerns Section Related Observation LastModified by Organization Detai ls LastModified Time None Recorded Concern Status LastModified by Organization Details LastModified Time None Recorded Advance Directives Directive None Recorded Payers Insurance Date Sequence Insurance Name Policy Number Policy Grossman Covered Member ID Grossman Member ID Guarantor Name 08/06/2023 [facility] (MEDICAID HMO) Kaylan Montoya [id number] Kaylan Montoya 08/05/[address] [facility] (MEDICAID HMO) Kaylan Montoya [id number] Kaylan Montoya Notes Date Note Type Note Provider Name and Address Organization Details Recorded Time 05/10/2023 text/html This is a 23-year-old G2, P1 that presents for routine OB follow-up. Patient has no acute concerns today. Patient is still feeling baby move, denies loss of fluid or vaginal bleeding. Patient does desire tubal ligation. Mohamud Mixon MD [address] [place] [address], [address], [facility] 05/10/2023 13:47:46 06/07/2023 text/html ROS as noted in the HPI This is a 23-year-old G2, P1 that presents for routine OB follow-up. Patient has no acute concerns today. Patient is still feeling baby move, denies loss of fluid or vaginal bleeding. Patient does desire tubal ligation. Mohamud Mixon MD [address] [place] [address], [address], [facility] 06/09/2023 14:46:01 06/22/2023 text/html Pt is here for GALINA and group B test today. Pt brought in lab work. Mohamud Mixon MD [address] [place] [address], [address], [facility] 06/24/2023 16:55:19 07/07/2023 text/html This is a 23-year-old that is status post repeat low-transverse . And did have a significant anemia after delivery. The patient had a near syncopal episode at nutrition appointment. The patient was found to have hemoglobin still around 6. The administered to units of blood as an outpatient. Patient states that she feels significantly better. Patient does admit that she has been having some drainage from the left side of her wound that is foul-smelling. Mohamud Mixon MD [address] [place] [address], [phone], [facility] 07/08/2023 10:14:43 07/19/2023 text/html This is a 23-year-old that comes in today for 1 week follow-up after incisional infection noted.Purulent Drainage has improved, however the patient has noticed a sanguinous drainage on the left side of the incision. Mohamud Mixon MD [address] [place] [address], [address], [facility] 07/19/2023 12:40:54 OBGyn Episode Ob Episode Information Episode Created Date Number of Fetuses Patient Bloodtype Patient rh Status Prepregnancy Weight lbs Domestic Partner Domestic Partner Phone Father Name Remanufacturing Technician Status 04/05/20 23 1 CLOSED Fetus Data First Name Last Name Admitted to NICU Weight (g) Sex Living Outcome Pediatric Complications Fetus ID Race Codes Race Delivery Type 3458.63 [phone] Full Term 3062 Bharath Calculation Initial Bharath Date Initial Exam Date Initial Exam Provider Initial Ultrasound Date Last Menstrual Period Date Ultra Sound Weeks Gestation 0 Eighteen To Twenty Week Bharath Update Ultra Sound Date Fundal Height At Umbil Quickening Date Ultra Sound Latest Weeks Gestation Final Bharath Confirmed By Final Bharath Confirmed Date Final Bharath Date Ultra Sound Latest Days Gestation 0 0 Menstrual History Last Menstrual Date Menses Monthly On Bcp Conception Prior Menses Frequency Hcg Plus Date Menarche Onset Age Delivery Information Delivery Date Delivery Type Labor Anesthesia Weeks Gestation Incision Type Labor Labor Length Hrs Delivered By Post Complications Tubal Sterilization Discharge Date Comments 1 41 Discharge Information Feeding Method Contraceptive Method Maternal HG B and HCT Levels Ob Episode Information Episode Created Date Number of Fetuses Patient Bloodtype Patient rh Status Prepregnancy Weight lbs Domestic Partner Domestic Partner Phone Father Name Remanufacturing Technician Status 04/05/20 23 1 Leo Jan OPEN Fetus Data First Name Last Name Admitted to NICU Weight (g) Sex Living Outcome Pediatric Complications Fetus ID Race Codes Race Delivery Type Jorgito [phone] [phone] M 3063 Bharath Calculation Initial Bharath Date Initial Exam Date Initial Exam Provider Initial Ultrasound Date Last Menstrual Period Date Ultra Sound Weeks Gestation 07/05/2023 04/05/2023 09/28/2022 0 Eighteen To Twenty Week Bharath Update Ultra Sound Date Fundal Height At Umbil Quickening Date Ultra Sound Latest Weeks Gestation Final Bharath Confirmed By Final Bharath Confirmed Date Final Bharath Date Ultra Sound Latest Days Gestation 0 07/05/19 24 0 Pre- Flowsheet Flowsheet Date 04/05/2023 Santana Score Blood Edema Fundus Height Fundus Units Glucose Ketones Leukocytes Nitrite Labor Signs Protein Cervic Dilation Cervic Effacement Cervic Station none 27 cm Type Weight in lbs Pre/Post Dialysis Refused With clothes 197.965817067803 BP Diastolic BP Location Tested BP Systolic BP Type 84 R arm 130 sitting Fetus Heart Rate Present A 115 Fetus Movement A Yes Comments Transfer from Dr. Grant. Flowsheet Date 05/10/2023 Santana Score Blood Edema Fundus Height Fundus Units Glucose Ketones Leukocytes Nitrite Labor Signs Protein Cervic Dilation Cervic Effacement Cervic Station 31 cm none trace Negative trace Type Weight in lbs Pre/Post Dialysis Refused With clothes 201.590041376433 BP Diastolic BP Location Tested BP Systolic BP Type 88 R arm 138 sitting Fetus Heart Rate Present A 165 Fetus Movement A Yes Comments No concerns Flowsheet Date 06/07/2023 Santana Score Blood Edema Fundus Height Fundus Units Glucose Ketones Leukocytes Nitrite Labor Signs Protein Cervic Dilation Cervic Effacement Cervic Station none 36 cm Type Weight in lbs Pre/Post Dialysis Refused With clothes 205.065352543599 BP Diastolic BP Location Tested BP Systolic BP Type 72 L arm 120 standing Fetus Heart Rate Present A 160 Fetus Movement A Yes Comments scheduled on 06/28 with tubal ligation. Tubal form signed 05/10/2023 Flowsheet Date 06/22/2023 Santana Score Blood Edema Fundus Height Fundus Units Glucose Ketones Leukocytes Nitrite Labor Signs Protein Cervic Dilation Cervic Effacement Cervic Station 38 cm none none Negative trace Type Weight in lbs Pre/Post Dialysis Refused With clothes 210.576903668407 BP Diastolic BP Location Tested BP Systolic BP Type 80 R arm 122 sitting Fetus Heart Rate Present A 160 Fetus Movement A Yes Comments Flowsheet Date 07/07/2023 Santana Score Blood Edema Fundus Height Fundus Units Glucose Ketones Leukocytes Nitrite Labor Signs Protein Cervic Dilation Cervic Effacement Cervic Station Type Weight in lbs Pre/Post Dialysis Refused With clothes 189.871461928740 BP Diastolic BP Location Tested BP Systolic BP Type 86 L arm 130 sitting Fetus Heart Rate Present Fetus Movement Comments Flowsheet Date 07/19/2023 Santana Score Blood Edema Fundus Height Fundus Units Glucose Ketones Leukocytes Nitrite Labor Signs Protein Cervic Dilation Cervic Effacement Cervic Station Type Weight in lbs Pre/Post Dialysis Refused With clothes 191.725742603841 BP Diastolic BP Location Tested BP Systolic BP Type 74 L arm 110 sitting Fetus Heart Rate Present Fetus Movement Comments Menstrual History Last Menstrual Date Menses Monthly On Bcp Conception Prior Menses Frequency Hcg Plus Date Menarche Onset Age 0509/28/2022 Genetic Screening And Infection History Question Response Note Patient's Age Will Be 35 Yea rs Or Older At Estimated Date of Delivery false Thalassemia (Urdu, Nepali, Mediterranean, Or Background): MCV < 80 false Neural Tube Defect (Meningomyelocele, Spina Bifi da, Or Anencephaly) false Congenital Heart Defect false Down Syndrome false Edmund-Sachs (eg, Mormon, Cajun, Swedish-[place]) f alse Zina Disease false Sickle Cell Disease Or Trait () false Hemophilia Or Other Blood Disorders false Muscular Dystrophy false Cystic Fibrosis false [place]'s Chorea false Intellectual Disability/Autism false If Yes, Was Person Tested For Fragile X? false Other Inherited Genetic Or Chromosomal Disorder false Maternal Metabolic Disorder (eg, Type 1 Diabetes , PKU) false Patient Or Baby's Father Had A Child With Defects Not Listed Above false Recurrent Loss, Or A Stillbirth false Medications (including Suppl ements, Vitamins, Herbs, OTC Drugs), Illicit/Recreational Drugs, Alcohol true If Yes, Agent(s) And Strength/Dosage false Any Other Genetic History false Live With Someone With TB Or Exposed To TB false Patient Or Partner Has History Of Genital Herpes false Rash Or Viral Illness Since Last Menstrual Perio d false History Of STD, Gonorrhea, Chlamydia, HPV, Syphi lis false Other Infection History false History of HIV false History of Hepatitis false Prior GBS-infected child false Hemoglobinopathy Or Carrier false Other Structural Defect false Recent Travel History Outside of Country false Mental Retardation/Autism false Delivery Information Delivery Date Delivery Type Labor Anesthesia Weeks Gestation Incision Type Labor Labor Length Hrs Delivered By Post Complications Tubal Sterilization Discharge Date Comments 4 39 Mohamud Mixon MD Discharge Information Feeding Method Contraceptive Method Maternal HG B and HCT Levels
== END 2025-03-21 13:58 | disposition home or self-care (01) ==
PROVIDERS: Emergency Provider Physician Assistant
DX: O90.0 Disruption of cesarean delivery wound (principal)
CPT/HCPCS: 87070; 99283